=== PATIENT | male | born 1965 | race Caucasian/White ===

== ENCOUNTER 2017-06-27 08:23 | Day surgery (SDC) | payer OTHER ==
[~2017-06-27 08:23] MED LIST: Midazolam 1 MG/ML 2 ML SDV ONE; Propofol 200 MG/20 ML SDV ONE; fentaNYL 100 MCG/2 ML SDV ONE
[2017-06-27] MEDS ORDERED: Dextrose 5%-Lactated Ringers 1,000 ML IV SCH (08:45)
[2017-06-27] MEDS ORDERED: Glycopyrrolate 0.2 MG/ML 2 ML SDV IVPUSH ONE (09:30)
[2017-06-27] MEDS ORDERED: Pantoprazole 40 MG Vial IVPUSH ONE (10:50)
--- NOTE | 2017-07-01 11:01 | OR ---
DATE OF PROCEDURE: 06/27/2017 PREOPERATIVE DIAGNOSIS: Dysphagia referable distal esophagus. POSTOPERATIVE DIAGNOSIS: Dysphagia associated with: 1. Small hiatal hernia with gastroesophageal reflux disease and edema at esophagogastric junction (no esophagogastric junction stricture). 2. Mild antral gastritis. OPERATIVE PROCEDURE: Esophagogastroduodenoscopy with: 1. Biopsies of esophagogastric junction for histologic evaluation. 2. Biopsies of antrum for CLOtest (05277). 3. Esophageal dilation (72907). ANESTHESIA: IV sedation. INDICATION FOR PROCEDURE: This is a 51-year-old presenting with some increasing dysphagia referable to the distal esophagus. He is not presently on any formal anti-secretory medication, taking some oral antacids on an ongoing basis, however. The plan is to proceed with upper GI endoscopy with biopsies and/or dilation as indicated. Potential risks including bleeding and perforation were discussed, and the patient wishes to proceed. DETAILS OF PROCEDURE: The patient was taken to the operating room, placed in a left lateral decubitus position. IV sedation was administered, after which the upper GI endoscope was passed orally through the length of the esophagus and the stomach with retroflexion view of the fundus, and thereafter through the pyloric channel and into the junction of the 3rd and 4th portions of the duodenum. Findings included a normal hypopharynx, larynx, upper esophageal sphincter, and esophageal body. No esophageal dilation was identified at the EG junction. There was a small hiatal hernia with fairly wide open esophagogastric junction. This was associated with some edema of the esophagogastric junction, but no stricturing per se as the scope could easily pass through the area and the overall caliber appeared to be reasonably normal. Within the stomach apart from the small hiatal hernia, the patient had some mild antral gastritis without erosions or ulcers. The pyloric channel and the visualized portion of the duodenum were unremarkable. At this point, biopsies were obtained from the antrum and sent for CLOtest for H. pylori. Multiple biopsies were then obtained from esophagogastric junction, sent for histologic evaluation. Minimal bleeding from the biopsy sites was seen, and at that point, a guidewire was passed in the stomach and the gastroscope removed leaving the guidewire in place. A 54-Danish Savary dilator was then passed over the guidewire and held in position for 1 minute after which the dilator and guidewire were removed. The dilation was undertaken in the event that there might be some improvement with the placement of the dilator, and upon removal of the dilator, the patient was taken to the recovery room in satisfactory condition. There were no evident complications. Recommendation at this point will be to start the patient on Protonix 40 mg daily. We will give a trial and see if treating the reflux disease helps with the dysphagia as his dysphagia maybe related to the edema at the EG junction. If there is no improvement while on the proton pump inhibitors, the next step probably would be esophageal motility study to see if there are any abnormalities in that regard. We will see the patient back on 07/24/2017 for followup. Lloyd Ellison MD /[id number]
== END 2017-06-27 12:23 | disposition home or self-care (01) ==
LOC: JP.SDS 08:23
PROVIDERS: ATTEND Surgery
DX: K29.50 Unspecified chronic gastritis without bleeding (principal); K44.9 Diaphragmatic hernia without obstruction or gangrene; K21.9 Gastro-esophageal reflux disease without esophagitis; K22.2 Esophageal obstruction; Z88.8 Allergy status to other drugs, medicaments and biological substances
CPT/HCPCS: 43239; 43248; 87081; C9113; J2250; J2704; J3010; J7042; 88305; J3490

== ENCOUNTER 2024-03-20 08:32 | Day surgery (SDC) | payer OTHER ==
[2024-03-20] MEDS ORDERED: Midazolam 1 MG/ML 2 ML SDV ONE (09:14)
[2024-03-20] MEDS ORDERED: Propofol 200 MG/20 ML SDV ONE (09:14)
[2024-03-20] MEDS ORDERED: fentaNYL 50 MCG/ML SDV ONE (09:14)
[2024-03-20] MEDS: Sodium Chloride 0.9% 1,000 ML IV SCH (12:04)
== END 2024-03-20 12:10 | disposition home or self-care (01) ==
LOC: JP.SDS 08:32
PROVIDERS: ATTEND Surgery
DX: R13.10 Dysphagia, unspecified (principal); K21.9 Gastro-esophageal reflux disease without esophagitis
CPT/HCPCS: 00731-QZ; 88305; C1726; J2250; J2704; J3010; J7030